=== PATIENT | female | born 1995 | race Caucasian/White ===

== ENCOUNTER 2023-06-04 07:27 | Emergency (ER) | payer OTHER ==
[2023-06-04 07:36] VITALS: BP 120/67; PULSE 96; RESP 16; TEMP 98.5; BMI 32.9
[2023-06-04] MEDS ORDERED: POLYMYXIN B SULFATE/TMP 10 ML OPHTHALMIC SOLUTION OU ONE (08:15)
== END 2023-06-04 08:32 | disposition home or self-care (01) ==
LOC: JER 07:27 → JERFT 07:27
DX: O26.892 Other specified pregnancy related conditions, second trimester (principal); H53.8 Other visual disturbances; H10.33 Unspecified acute conjunctivitis, bilateral; Z3A.14 14 weeks gestation of pregnancy
CPT/HCPCS: 99283-25